=== PATIENT | female | born 1940 | race Caucasian/White ===

== ENCOUNTER 2019-02-26 15:03 | Emergency (ER) | payer MEDICARE, OTHER ==
[2019-02-26] MEDS ORDERED: Acetaminophen ADULT LIQ* 650 MG/20.3 ML UDC PO ONE (15:11)
--- NOTE | 2019-02-26 15:12 | ED ---
Adult Trauma - HPI Summary HPI Summary: The patient is a 78 y/o arriving by ambulance to [facility] with a chief complaint of fall resulting in head and back injury [employer]. She reports that she was at the [employer] office with her small dog, when a person with a large dog was walking by, but the dog started pulling, causing them to hit into the patient. She had been using her walker at the time, but fell onto the floor. She hit her head, but denies LOC, although she is now sustaining a headache, neck pain ( possible chronic secondary to RA), and back pain, worse on the low left side. She additionally c/o nausea but denies vomiting. Her currnet pain is rated 10/ 10 in severity. She takes Tylenol and Toprol every day but no anticoagulants. PMHx: rheumatoid arthritis, HTN. FHx: rheumatoid arthritis, osteoporosis. Nonsmoker, no EtOH, no substance use. Medications reviewed. Allergies reviewed. - History of Current Complaint Stated Complaint: FALL PER EMS Time Seen by Provider: 02/26/19 15:05 Hx Obtained From: Patient Mechanism of Injury: Fall Loss of Consciousness: no loss of consciousness Onset/Duration: Started Minutes Ago, Still Present Onset of Pain: Immediate Onset Severity: Severe Current Severity: Severe Pain Intensity: 10 Pain Scale Used: 0-10 Numeric Location: Head, Neck, Back Aggravating Factor(s): Movement Alleviating Factor(s): Nothing Associated Signs & Symptoms: Positive: Other: - POSITIVE: nausea, headache; NEGATIVE: vomiting. Negative: Loss of Consciousness - Allergy/Home Medications Allergies/Adverse Reactions: Allergies Allergy/AdvReac Type Severity Reaction Status Date / Time morphine Allergy Vomiting Verified 02/26/19 15:17 Home Medications: Home Medications Acetaminophen TAB* [Tylenol TAB*] 325 mg PO DAILY 02/26/19 [History Confirmed ] Metoprolol Succinate XL TAB* [Toprol XL TAB*] 25 mg PO DAILY 02/26/19 [History Confirmed 02/26/19] PMH/Surg Hx/FS Hx/Imm Hx Endocrine/Hematology History: Reports: Other Endocrine/Hematological Disorders - Rheumatoid arthritis Denies: Hx Diabetes Cardiovascular History: Reports: Hx Hypertension Opthamlomology History: Reports: Hx Contacts or Glasses - Surgical History Surgical History: None Surgery Procedure, Year, and Place: none Infectious Disease History: No - Family History Known Family History: Positive: Other - RA, osteoporosis - Social History Alcohol Use: None Hx Substance Use: No Substance Use Type: Reports: None Hx Tobacco Use: No Smoking Status (MU): Never Smoked Tobacco Review of Systems Positive: Nausea. Negative: Vomiting Positive: Other - pain in the lower back, neck pain Neurological: Other - POSITIVE: head injury with fall; NEGATIVE: LOC Positive: Headache All Other Systems Reviewed And Are Negative: Yes Physical Exam - Summary Physical Exam Summary: Constitutional: Well-developed, Well-nourished, Alert, Cooperative Skin: Warm, Dry HENT: Normocephalic; No Racoons eyes; No mcnamara's sign; No abrasion; No contusion; No hemotympanum; No maxilla facial tenderness or instability; Dentition are smooth; No dental trauma; No trismus Eyes: EOM normal, PERRL Neck: Trachea is midline. No stridor; No JVD; No step off; No posterior cervical spine tenderness Cardio: Rhythm regular, rate normal Heart sounds normal; Intact distal pulses; The pedal pulses are 2+ and symmetric. Radial pulses are 2+ and symmetric. Pulmonary/Chest wall: Effort normal; Breath sounds normal; Equal chest rise; No flail segment; No rib tenderness; No sternal tenderness Abd: Soft, Appearance normal. No distension; No tenderness; No palpable pulsatile mass; No Cullens sign; No Kang-Turners sign Musculoskeletal: Full ROM and no tenderness at hips, ankles, shoulders, elbows and knees; Mild mid-thoracic and lumbar tenderness; No joint swelling; No paraspinal tenderness; No step off or deformity of the spine; Pelvis is stable to lateral compression and rock Neuro: Alert, Oriented x3, Strength 5/5 all extremities. GCS: 15. Psych: Mood and affect Normal Triage Information Reviewed: Yes Vital Signs Reviewed: Yes - Mike Coma Scale Best Eye Response: 4 - Spontaneous Best Motor Response: 6 - Obeys Commands Best Verbal Response: 5 - Oriented Coma Scale Total: 15 Diagnostics - Laboratory Lab Statement: Any lab studies that have been ordered have been reviewed, and results considered in the medical decision making process. - Radiology Cervical Spine XR Radiology Interpretation Completed By: Radiologist Summary of Radiographic Findings: Impression: Multilevel degenerative disc disease. No fracture is noted. Diffuse osteopenia is noted. ED physician has reviewed this report. Pelvis XR Radiology Interpretation Completed By: Radiologist Summary of Radiographic Findings: Impression: Limited study due to overlying stool however no obvious fracture is noted. Sacroiliac joints are noted. Moderate degree of degenerative changes are noted in the hips. ED physician has reviewed this report. - CT Brain CT CT Interpretation Completed By: Radiologist Summary of CT Findings: Impression: Age-appropriate atrophy. No intracranial mass or hemorrhage is noted. ED physician has reviewed this report. Cervical Spine CT CT Interpretation Completed By: Radiologist Summary of CT Findings: Impression: Multilevel degenerative disc disease without definite evidence of fracture. ED physician has reviewed this report. Re-Evaluation - Re-Evaluation First Eval Re-Evaluation Time: 16:40 Comment: I discussed negative results thus far. I recommended Pelvis XR. Second Eval Re-Evaluation Time: 18:00 Comment: We discussed Pelvis XR results and discharge. Adult Trauma Course/Dx - Course Course Of Treatment: Patient is here after mechanical fall secondary to a dog. Patient negative CT head and cervical spine performed. Patient had pain in her lower pelvis x-rays performed showed no fracture. Patient's pain resolved as she stood up and sat on her walker. Patient was given Tylenol here for her pain. Patient did not need any further imaging as she had no other traumatic injuries. - Diagnoses Provider Diagnoses: Fall, Low back pain, Head pain Discharge - Sign-Out/Discharge Documenting (check all that apply): Patient Departure - Patient will be discharged home. Patient Received Moderate/Deep Sedation with Procedure: No - Discharge Plan Condition: Stable Disposition: HOME Patient Education Materials: Fall Prevention for Older Adults (ED), Acute Headache (DC), Acute Low Back Pain (ED) Referrals: [facility] [place] [facility] [Outside] - 3 Days Additional Instructions: Take Tylenol for pain. Return to the emergency department for any new or worsening pain or other symptoms. Follow up with your primary care provider in 2 -3 days. - Billing Disposition and Condition Condition: STABLE Disposition: Home - Attestation Statements Document Initiated by Scribe: Yes Documenting Scribe: Paulette Hutchinson Provider For Whom Kristi is Documenting (Include Credential): Dr. Dong Brooke MD Scribe Attestation: Paulette Luz scribed for Dr. Dong Brooke MD on 02/26/19 at 2127. Scribe Documentation Reviewed: Yes Provider Attestation: The documentation as recorded by the scribe, Paulette Hutchinson accurately reflects the service I personally performed and the decisions made by me, Dr. Dong Brooke MD Status of Kristi Document: Viewed
[2019-02-26 18:18] VITALS: BP 147/81
== END 2019-02-26 18:17 | disposition home or self-care (01) ==
LOC: ED 15:03
DX: M54.5 Low back pain (principal); R51 Headache; W18.39XA Other fall on same level, initial encounter; Y92.89 Other specified places as the place of occurrence of the external cause; M06.9 Rheumatoid arthritis, unspecified; I10 Essential (primary) hypertension; Z88.5 Allergy status to narcotic agent; Z79.899 Other long term (current) drug therapy; M50.30 Other cervical disc degeneration, unspecified cervical region
CPT/HCPCS: 70450; 72052; 72125; 72170; 99283; A9270-GY